=== PATIENT | male | born 1960 | race Caucasian/White ===

== ENCOUNTER → 2017-09-26 | Outpatient (CLI) | payer OTHER ==
[~2017-09-26] VITALS: Ht 167.6 cm; Wt 63.5 kg
[~2017-09-26] MED LIST: ANORO ELLIPTA1 EACH IH
== END | disposition home or self-care (01) ==
LOC: OPR 07:31 → EDSTATUS 08:00
PROC: 0BDL4ZX Extraction of Left Lung, Percutaneous Endoscopic Approach, Diagnostic (ICD-10-PCS; principal; 2017-09-26)
DX: C34.92 Malignant neoplasm of unspecified part of left bronchus or lung (principal); R93.8 Abnormal findings on diagnostic imaging of other specified body structures; Z87.891 Personal history of nicotine dependence
CPT/HCPCS: 71045; 77012; 88305; 88341 TC; 88342 TC

== ENCOUNTER → 2017-10-11 | Outpatient (CLI) | payer OTHER | END | disposition home or self-care (01) | LOC: CDC 15:25 | DX: Z01.810 Encounter for preprocedural cardiovascular examination (principal); C34.90 Malignant neoplasm of unspecified part of unspecified bronchus or lung; R94.31 Abnormal electrocardiogram [ECG] [EKG]; J98.4 Other disorders of lung | CPT/HCPCS: 93000 ==

== ENCOUNTER 2017-10-20 10:25 | Day surgery (SDC) | payer OTHER ==
[~2017-10-20] VITALS: Ht 177.8 cm; Wt 63.5 kg
[~2017-10-20 10:25] MED LIST changes: +PERCOCET 5/31 TABLET PO
[2017-10-20 10:51] VITALS: BP 121/74
[2017-10-20 11:13] LABS: HEMATOCRIT 41.5 % (38.0-50.0); HEMOGLOBIN 13.2 G/DL (12.5-16.6); MCH 28.1 PG (29.0-34.0); MCHC 31.8 G/DL (30.0-36.0); MCV 88.3 FL (86-99); PLATELET COUNT 361 K/uL (156-360); RBC DIS.WIDTH-CV 12.9 % (11.8-14.6); WHITE BLOOD COUNT 12.4 K/uL (4.1-10.2)
[2017-10-20 11:18] LABS: INTER. NORMALIZED RATIO 1.1
[2017-10-20 11:21] LABS: PTT 28.6 SEC (25-37)
[2017-10-20] MEDS ORDERED: HYDROCODON-ACE1 EAC7 PO (13:13)
[2017-10-20] MEDS ORDERED: COLACE100 MG PO (13:13)
[2017-10-20 14:03] VITALS: BP 124/67
[2017-10-20 15:00] VITALS: BP 130/60
== END 2017-10-20 15:10 | disposition home or self-care (01) ==
LOC: SDC 10:25
PROVIDERS: Thoracic Surgery (Cardiothoracic Vascular Surgery)
PROC: 07B74ZX Excision of Thorax Lymphatic, Percutaneous Endoscopic Approach, Diagnostic (ICD-10-PCS; principal; 2017-10-20)
DX: C34.12 Malignant neoplasm of upper lobe, left bronchus or lung (principal); F17.200 Nicotine dependence, unspecified, uncomplicated; J44.9 Chronic obstructive pulmonary disease, unspecified; Z82.49 Family history of ischemic heart disease and other diseases of the circulatory system; Z83.79 Family history of other diseases of the digestive system
CPT/HCPCS: 85027; 85610; 85730; 86850; 86900; 86901; 88305; J0690; J1100; J2405; J2710; J3010; J7643; S0020

== ENCOUNTER 2018-01-11 21:05 | Inpatient (IN) | payer OTHER ==
[~2018-01-11] VITALS: Ht 177.8 cm; Wt 62.0 kg
[~2018-01-11 21:05] MED LIST changes: +COLACE100 MG PO; +HYDROCODON-ACE1 EAC7 PO; +NEURONTIN600 MG PO; +PRIMALEV PO; +ZANTAC150 MG PO
[2018-01-12 05:59] VITALS: BP 131/70
[2018-01-12 06:09] LABS: PTT 25.7 SEC (25-37)
[2018-01-12 17:01] LABS: HEMATOCRIT 40.5 % (38.0-50.0); HEMOGLOBIN 13.1 G/DL (12.5-16.6); MCV 89.8 FL (86-99)
[2018-01-12 22:00] VITALS: BP 123/89
[2018-01-13 06:49] LABS: HEMATOCRIT 32.9 % (38.0-50.0); MCH 29.2 PG (29.0-34.0); MCHC 32.5 G/DL (30.0-36.0); MCV 89.6 FL (86-99); RBC DIS.WIDTH-CV 19.5 % (11.8-14.6); RBC DIS.WIDTH-SD 63.1 % (39-53); RED BLOOD COUNT 3.67 M/uL (4.00-5.50); WHITE BLOOD COUNT 13.1 K/uL (4.1-10.2)
[2018-01-13 07:14] LABS: HEMOGLOBIN 10.7 G/DL (12.5-16.6); PLATELET COUNT 160 K/uL (156-360)
[2018-01-13 07:42] LABS: CHLORIDE 103 MEQ/L (99-109); GFR ESTIMATE (CALCULATED) > 59 mL/min/ (58.99-99999); GLUCOSE 135 mg/dL (70-99); SODIUM 133 MEQ/L (136-147); UREA NITROGEN (BUN) 21 mg/dL (9-23)
[2018-01-13 07:43] LABS: POTASSIUM 6.1 MEQ/L (3.7-5.4)
[2018-01-13 14:25] VITALS: BP 109/67
[2018-01-13 14:31] VITALS: BP 123/89
[2018-01-13 19:00] VITALS: BP 110/59
[2018-01-13 20:00] VITALS: BP 113/63
[2018-01-14] VITALS (15 sets, daily range): BP systolic 89–138; BP diastolic 45–118
[2018-01-14 06:05] LABS: HEMATOCRIT 26.9 % (38.0-50.0); MCH 29.5 PG (29.0-34.0); MCHC 32.3 G/DL (30.0-36.0); MCV 91.2 FL (86-99); PLATELET COUNT 136 K/uL (156-360); RBC DIS.WIDTH-CV 18.8 % (11.8-14.6); RBC DIS.WIDTH-SD 62.5 % (39-53); RED BLOOD COUNT 2.95 M/uL (4.00-5.50); WHITE BLOOD COUNT 10.9 K/uL (4.1-10.2)
[2018-01-14 06:09] LABS: HEMOGLOBIN 8.7 G/DL (12.5-16.6)
[2018-01-14 06:21] LABS: CHLORIDE 94 MEQ/L (99-109); CREATININE 0.7 MG/DL (0.6-1.3); GFR ESTIMATE (CALCULATED) > 59 mL/min/ (58.99-99999); GLUCOSE 120 mg/dL (70-99); SODIUM 131 MEQ/L (136-147); UREA NITROGEN (BUN) 10 mg/dL (9-23)
[2018-01-14 06:29] LABS: POTASSIUM 4.3 MEQ/L (3.7-5.4)
[2018-01-15] VITALS (15 sets, daily range): BP systolic 86–128; BP diastolic 53–77
[2018-01-16] VITALS (15 sets, daily range): BP systolic 99–128; BP diastolic 53–79
[2018-01-17 03:58] VITALS: BP 105/57
[2018-01-17 05:54] LABS: HEMATOCRIT 26.3 % (38.0-50.0); HEMOGLOBIN 8.5 G/DL (12.5-16.6); MCH 29.7 PG (29.0-34.0); MCHC 32.3 G/DL (30.0-36.0); PLATELET COUNT 174 K/uL (156-360); RBC DIS.WIDTH-CV 18.6 % (11.8-14.6); RBC DIS.WIDTH-SD 62.6 % (39-53); RED BLOOD COUNT 2.86 M/uL (4.00-5.50); WHITE BLOOD COUNT 8.6 K/uL (4.1-10.2)
[2018-01-17 06:16] LABS: CHLORIDE 97 MEQ/L (99-109); CREATININE 0.7 MG/DL (0.6-1.3); GFR ESTIMATE (CALCULATED) > 59 mL/min/ (58.99-99999); GLUCOSE 113 mg/dL (70-99); POTASSIUM 3.9 MEQ/L (3.7-5.4); UREA NITROGEN (BUN) 6 mg/dL (9-23)
[2018-01-17 06:18] LABS: SODIUM 139 MEQ/L (136-147)
[2018-01-17 09:00] VITALS: BP 107/60
[2018-01-17 12:30] VITALS: BP 105/56
[2018-01-17 17:01] VITALS: BP 110/63
[2018-01-17 19:26] VITALS: BP 111/60
[2018-01-17 23:00] VITALS: BP 97/52
[2018-01-18] VITALS (7 sets, daily range): BP systolic 99–116; BP diastolic 58–71
[2018-01-19 04:08] VITALS: BP 100/69
[2018-01-19 08:10] VITALS: BP 110/65
[2018-01-19 12:17] VITALS: BP 99/59
[2018-01-19] MEDS ORDERED: MOTRIN600 MG PO (13:39)
[2018-01-19] MEDS ORDERED: ENDOCET 5-3251 EACH PO (13:39)
[2018-01-19] MEDS ORDERED: ASCORBIC ACID500 M3 PO (13:39)
[2018-01-19] MEDS ORDERED: FOLIC ACID1 MG PO (13:39)
[2018-01-19] MEDS ORDERED: LOPRESSOR25 MG PO (13:39)
[2018-01-19] MEDS ORDERED: THERAGRAN1 TABLET PO (13:39)
[2018-01-19] MEDS ORDERED: DIGOXIN250 MCG PO (13:39)
[2018-01-19] MEDS ORDERED: FERROUS SULFAT325 MG PO (13:39)
[2018-01-19] MEDS ORDERED: DOCUSATE SODIU100 MG PO (13:39)
== END 2018-01-19 15:42 | disposition home health service (06) | DRG 165 ==
LOC: ENRESERV 21:05 → CANRESERV 21:05 → 2SOUTH 01-12 05:28 → 4WEST 01-12 05:28 → ENRESERV 01-12 08:02 → CANRESERV 01-12 08:02 → ENRESERV 01-12 08:03 → 2SOUTH 01-12 09:30 → ENRESERV 01-12 18:25 → CANRESERV 01-12 18:25 → ENRESERV 01-13 07:32 → 4WEST 01-13 14:19 → CANRESERV 01-15 08:52 → ENRESERV 01-15 08:52 → CANRESERV 01-15 10:44 → 4WEST 01-16 14:57 → ENRESERV 01-16 16:54 → 4EAST 01-16 18:29
PROVIDERS: Nurse Anesthetist, Certified Registered; Thoracic Surgery (Cardiothoracic Vascular Surgery)
PROC: 0BTG0ZZ Resection of Left Upper Lung Lobe, Open Approach (ICD-10-PCS; principal; 2018-01-12)
PROC: 0W9B30Z Drainage of Left Pleural Cavity with Drainage Device, Percutaneous Approach (ICD-10-PCS; principal; 2018-01-12)
PROC: 30233N1 Transfusion of Nonautologous Red Blood Cells into Peripheral Vein, Percutaneous Approach (ICD-10-PCS; principal; 2018-01-12)
PROC: 0WU80JZ Supplement Chest Wall with Synthetic Substitute, Open Approach (ICD-10-PCS; principal; 2018-01-12)
DX: C34.10 Malignant neoplasm of upper lobe, unspecified bronchus or lung (principal); Z82.49 Family history of ischemic heart disease and other diseases of the circulatory system; Z92.21 Personal history of antineoplastic chemotherapy; Z92.3 Personal history of irradiation; J44.9 Chronic obstructive pulmonary disease, unspecified; D64.9 Anemia, unspecified
CPT/HCPCS: 70450; 71045; 71046; 80048; 85014; 85018; 85027; 85610; 85730; 86850; 86900; 86901; 86920; 87641; 88305; 88309; 88311; 88313; 88342 TC; 94640; 94760; 94799; 97530 GO; 97530 GP; A6214; C1781; J0690; J1100; J1160; J1170; J1200; J1644; J1885; J2405; J3420; J7030; J7050; J7120; P9016; P9045